=== PATIENT | male | born 1960 | race Caucasian/White ===

== ENCOUNTER → 2016-07-18 | Outpatient (CLI) | payer BC, OTHER ==
[~2016-07-18] VITALS: Ht 177.8 cm; Wt 127.0 kg
[~2016-07-18] MED LIST: ASPI81TA28 PO; ATOR-26 PO; LISI-729 PO; NTRGSL/4 UT
[2016-07-18 16:33] VITALS: BP 119/78; PULSE 65; Ht 177.8 cm; Wt 127.0 kg
== END | disposition home or self-care (01) ==
LOC: C.NEUR 15:43
PROVIDERS: ATTEND Internal Medicine Pulmonary Disease
DX: G47.33 Obstructive sleep apnea (adult) (pediatric) (principal)

== ENCOUNTER 2017-01-21 18:44 | Observation (INO) | payer OTHER ==
[~2017-01-21] VITALS: Ht 177.8 cm; Wt 124.8 kg
[2017-01-21] MEDS ORDERED: ALUMINUM/MAGNESIUM SUSP 30 ML UDC PO STA (18:53)
[2017-01-21] MEDS ORDERED: ASPIRIN 81 MG CHEW PO STA (18:53)
[2017-01-21] MEDS ORDERED: PANTOprazole SOD 40 MG TAB PO STA (18:53)
[2017-01-21] MEDS ORDERED: SODIUM CHLORIDE 0.9% 500ML 500 ML IV STA (18:53)
[2017-01-21] MEDS ORDERED: NITROGLYCERIN 0.4 MG SL PER TAB CHARGE SL PRN ×2 (19:00→22:15)
--- NOTE | 2017-01-21 19:07 | EMERGENCY ROOM VISIT NOTE ---
History Report prepared by [place]: [facility] Under the Supervision of: Dr. Maurice Hobbs D.O. First contact with patient: 18:48 Chief Complaint: CHEST PAIN Stated Complaint: CHEST PAIN History of Present Illness The patient is a 57 year old male who presents to the Emergency Room with complaints of an episode of chest pain 1 hour ago. The patient was doing some light yard work when he started having a heavy pain across the top of his chest. It did not radiate to his neck, back, or arm. The pain is currently improved, but he feels that it might come back. He has nitro at home which he did not take. He did not have any SOB, nausea, or abdominal pain. He feels like he has to take a deep breath every once in a while. He denies any swelling in his legs. He had lower back pain for the past few days which is normal for him. He has a history of heart problems and has a stent in place. He has a history of hypertension. His last stress test was normal 2 years ago. He denies any other surgeries. He denies any tobacco or alcohol use. He had been on a steroid for heel spurs recently. Source of History: patient, family Onset: 1 hour ago Position: chest Quality: other (heavy) Timing: other (episodic) Associated Symptoms: No neck pain, No SOB, No nausea, No abdominal pain Note: Pt denies leg swelling. Review of Systems See HPI for pertinent positives & negatives. A total of 10 systems reviewed and were otherwise negative. Past Medical & Surgical Medical Problems: (1) Hypertension Surgical Problems: (1) History of heart artery stent Family History No pertinent family history stated. Social History Marital Status: Occupation Status: employed Current/Historical Medications Scheduled Aspirin (Aspirin Ec), 81 MG PO DAILY Atorvastatin (Lipitor), 80 MG PO HS Lisinopril (Prinivil), 5 MG PO DAILY Scheduled PRN Nitroglycerin (Nitrostat), 0.4 MG UT PRN PRN for Chest Pain Allergies Coded Allergies: Penicillins (Unverified Allergy, Intermediate, HIVES, 01/21/17) Physical Exam Vital Signs Date Time Temp Pulse Resp B/P (MAP) Pulse Ox O2 Delivery O2 Flow Rate FiO2 01/21/17 19:26 94 Room Air 01/21/17 19:26 94 Room Air 01/21/17 19:26 53 16 132/60 94 Room Air 01/21/17 19:08 55 01/21/17 18:55 95 Room Air 01/21/17 18:50 36.9 58 19 165/99 95 Room Air Physical Exam GENERAL: Patient is awake, alert, and in no acute distress. Patient is resting comfortably and showing no signs of anxiety EYES: The conjunctivae are clear. The pupils are round and reactive. EARS, NOSE, MOUTH AND THROAT: The nose is without any evidence of any deformity. Mucous membranes are moist tongue is midline NECK: The neck is nontender and supple. RESPIRATORY: Normal respiratory effort is noted there is no evidence of wheezing rhonchi or rales CARDIOVASCULAR: Regular rate and rhythm noted there no murmurs rubs or gallops normal S1 normal S2 GASTROINTESTINAL: The abdomen is soft. Bowel sounds are present in all quadrants. Abdomen is nontender MUSCULOSKELETAL/EXTREMITIES: There is no evidence of gross deformity full range of motion is noted in the hips and shoulders SKIN: There is no obvious evidence of any rash. There are no petechiae, pallor or cyanosis noted. NEUROLOGIC: Patient is awake alert and oriented x3 Medical Decision & Procedures ER Provider Diagnostic Interpretation: X-ray results as stated below per interpretation by me and the radiologist. CHEST ONE VIEW PORTABLE CLINICAL HISTORY: Chest pain. COMPARISON STUDY: No previous studies for comparison. FINDINGS: The lung volumes are normal. No pneumothorax or pleural effusion is identified. There is no consolidation to suggest pneumonia and there is no evidence of pulmonary edema. Cardiac size is at the upper limits of normal. Mediastinal contours are unremarkable. IMPRESSION: No acute cardiopulmonary findings. Electronically signed by: Boogie Franklin M.D. 01/21/2017 7:18 PM Dictated Date/Time: 01/21/2017 7:17 PM Laboratory Results 01/21/17 19:25 Red Blood Count 4.90, Mean Corpuscular Volume 90.8, Mean Corpuscular Hemoglobin 31.2, Mean Corpuscular Hemoglobin Concent 34.4, Mean Platelet Volume 10.1, Neutrophils (%) (Auto) 59.5, Lymphocytes (%) (Auto) 30.3, Monocytes (%) (Auto) 9.0, Eosinophils (%) (Auto) 0.7, Basophils (%) (Auto) 0.2, Neutrophils # (Auto) 6.75, Lymphocytes # (Auto) 3.43, Monocytes # (Auto) 1.02, Eosinophils # (Auto) 0.08, Basophils # (Auto) 0.02 01/21/17 19:25 Test 01/21/17 19:25 White Blood Count 11.33 K/uL (4.8-10.8) Red Blood Count 4.90 M/uL (4.7-6.1) Hemoglobin 15.3 g/dL (14.0-18.0) Hematocrit 44.5 % (42-52) Mean Corpuscular Volume 90.8 fL (80-100) Mean Corpuscular Hemoglobin 31.2 pg (25-34) Mean Corpuscular Hemoglobin Concent 34.4 g/dl (32-36) Platelet Count 224 K/uL (130-400) Mean Platelet Volume 10.1 fL (7.4-10.4) Neutrophils (%) (Auto) 59.5 % Lymphocytes (%) (Auto) 30.3 % Monocytes (%) (Auto) 9.0 % Eosinophils (%) (Auto) 0.7 % Basophils (%) (Auto) 0.2 % Neutrophils # (Auto) 6.75 K/uL (1.4-6.5) Lymphocytes # (Auto) 3.43 K/uL (1.2-3.4) Monocytes # (Auto) 1.02 K/uL (0.11-0.59) Eosinophils # (Auto) 0.08 K/uL (0-0.5) Basophils # (Auto) 0.02 K/uL (0-0.2) RDW Standard Deviation 43.0 fL (36.4-46.3) RDW Coefficient of Variation 13.0 % (11.5-14.5) Immature Granulocyte % (Auto) 0.3 % Immature Granulocyte # (Auto) 0.03 K/uL (0.00-0.02) Prothrombin Time 10.2 SECONDS (9.0-12.0) Prothromb Time International Ratio 1.0 (0.9-1.1) Activated Partial Thromboplast Time 24.9 SECONDS (21.0-31.0) Partial Thromboplastin Ratio 1.0 Anion Gap 6.0 mmol/L (3-11) Est Creatinine Clear Calc Drug Dose 138.3 ml/min Estimated GFR () 116.6 Estimated GFR (Non- 100.6 BUN/Creatinine Ratio 19.6 (10-20) Calcium Level 8.6 mg/dl (8.5-10.1) Total Bilirubin 0.4 mg/dl (0.2-1) Direct Bilirubin 0.1 mg/dl (0-0.2) Aspartate Amino Transf (AST/SGOT) 36 U/L (15-37) Alanine Aminotransferase (ALT/SGPT) 78 U/L (12-78) Alkaline Phosphatase 68 U/L (45-117) Troponin I < 0.015 ng/ml (0-0.045) Total Protein 7.6 gm/dl (6.4-8.2) Albumin 3.7 gm/dl (3.4-5.0) Lipase 115 U/L (73-393) Laboratory results per my review. Medications Administered Medications (Trade) Dose Ordered Sig/Mark Route Start Time Stop Time Status Last Admin Dose Admin Aspirin (Aspirin Chew) 324 mg NOW STAT PO 01/21/17 18:53 01/21/17 18:56 DC 01/21/17 19:19 324 MG Al Hydroxide/Mg Hydroxide (Maalox Susp) 30 ml NOW STAT PO 01/21/17 18:53 01/21/17 18:56 DC 01/21/17 19:18 30 ML Sodium Chloride 500 ml @ 999 mls/hr Q31M STAT IV 01/21/17 18:53 01/21/17 19:23 DC 01/21/17 19:19 999 MLS/HR Pantoprazole Sodium (Protonix Tab) 40 mg NOW STAT PO 01/21/17 18:53 01/21/17 18:56 DC 01/21/17 19:19 40 MG ECG Indication: chest pain Rate (beats per minute): 58 Rhythm: sinus bradycardia Findings: PVC, other (no acute ST segment abnormality) Comparison ECG Date: no prior available ED Course 1850: The patient was evaluated in room A12B. A complete history and physical examination were performed. 185: Protonix Tab 40 mg PO, NSS 500 ml @ 999 mls/hr IV, Maalox Susp 30 ml PO, Aspirin 324 mg PO. 1899: Nitroglycerin 0.4 mg SL. 2014: Upon reevaluation, the patient is resting comfortably. I discussed results and treatment plan with him. He verbalizes agreement and understanding. The patient will be evaluated for further management and care. 2020: I discussed the patient's case with SHANON Biswas hospitalist. The patient will be evaluated for further management. Medical Decision Prior records/ancillary studies reviewed. Triage Nursing notes reviewed. Additional history obtained from family. The patient's history was concerning for chest pain. Differential diagnosis: Etiologies such as cardiac ischemia, aortic dissection, pulmonary embolism, pneumonia, pneumothorax, musculoskeletal, infections, pericarditis, myocarditis , esophageal rupture, gastrointestinal, as well as others were entertained. The patient is a 57-year-old male who presented to the emergency department for an evaluation of chest discomfort. The patient notices anterior chest discomfort which she describes a pressure. The patient is a history of coronary artery disease. He did not take his nitroglycerin at home for this pain. He states the pain began while he was doing yardwork but denies that he was exerting himself overly when it began. I discussed the patient's laboratory and radiographic studies with him. I discussed the limitations of the emergency department workup for chest pain with him. Given the patient's risk factors I discussed his case with the on-call [facility] hospitalist group. They've agreed to evaluate the patient in the emergency department for further management and disposition. Medication Reconcilliation Current Medication List: was personally reviewed by me Blood Pressure Screening Patient's blood pressure: Normal blood pressure Blood pressure disposition: Did not require urgent referral Consults Time Called: 2019 Consulting Physician: SHANON Biswas hospitalist Returned Call: 2020 I discussed the patient's case with him. The patient will be evaluated for further management. Impression Primary Impression: Chest pain Scribe Attestation The scribe's documentation has been prepared under my direction and personally reviewed by me in its entirety. I confirm that the note above accurately reflects all work, treatment, procedures, and medical decision making performed by me. Departure Information Dispostion Being Evaluated By Hospitalist Referrals Merlin Dave M.D. (PCP) Patient Instructions [facility]
--- NOTE | 2017-01-21 19:20 | DIAGNOSTIC IMAGING REPORT ---
CHEST ONE VIEW PORTABLE CLINICAL HISTORY: Chest pain. COMPARISON STUDY: No previous studies for comparison. FINDINGS: The lung volumes are normal. No pneumothorax or pleural effusion is identified. There is no consolidation to suggest pneumonia and there is no evidence of pulmonary edema. Cardiac size is at the upper limits of normal. Mediastinal contours are unremarkable. IMPRESSION: No acute cardiopulmonary findings. Electronically signed by: Boogie Franklin M.D. 01/21/2017 7:18 PM Dictated Date/Time: 01/21/2017 7:17 PM
[2017-01-21 19:30] LABS: BASO % 0.2 %; BASO ABS # 0.02 K/uL (0-0.2); COMPLETE YES; EOS % 0.7 %; HEMATOCRIT 44.5 % (42-52); IG% 0.3 %; LYMPH % 30.3 %; LYMPH ABS # 3.43 K/uL (1.2-3.4); MEAN CELL VOLUME 90.8 fL (80-100); MEAN CORPUSCULAR HEMOGLOBIN 31.2 pg (25-34); MEAN CORPUSCULAR HGB CONC 34.4 g/dl (32-36); MEAN PLATELET VOLUME 10.1 fL (7.4-10.4); NEUT % 59.5 %; PLATELET COUNT 224 K/uL (130-400); WHITE BLOOD COUNT 11.33 K/uL (4.8-10.8)
[2017-01-21 19:47] LABS: ALT/SGPT 78 U/L (12-78); AST/SGOT 36 U/L (15-37); BLOOD UREA NITROGEN 16 mg/dl (7-18); BUN/CREATININE RATIO 19.6 (10-20); CALCIUM 8.6 mg/dl (8.5-10.1); CARBON DIOXIDE 25 mmol/L (21-32); CHLORIDE 108 mmol/L (98-107); GLUCOSE 122 mg/dl (70-99); SODIUM 139 mmol/L (136-145)
[2017-01-21 19:56] LABS: ALKALINE PHOSPHATASE 68 U/L (45-117)
[2017-01-21 20:05] LABS: PROTHROMBIN TIME (PATIENT) 10.2 SECONDS (9.0-12.0)
[2017-01-21] MEDS ORDERED: NTRGSL/4 UT (20:07)
[2017-01-21] MEDS ORDERED: LISI-729 PO (20:07)
[2017-01-21] MEDS ORDERED: ASPI81TA28 PO (20:07)
[2017-01-21] MEDS ORDERED: ATOR-26 PO (20:07)
--- NOTE | 2017-01-21 21:12 | History and Physical ---
History & Physical Date & Time of Service: Jan 21, 2017 at 20:41 Chief Complaint: Chest Pain Primary Care Physician: Merlin Dave M.D. History of Present Illness Source: patient 57M with a PMHx of HTN, CAD p/w an episode of chest tightness that lasted 6-8 minutes while performing yard work earlier today. He described the pain as a sensation as a band across his chest. He has never had a pain like that before. The pain resolved on its own with rest. He did not have a recurrence of this pain after the initial event. The pain was not radiating to his left arm or his jaw. Pt has a history of a coronary artery stent placed in [place] by Dr. Aguilar, he describes the pain as distinctly different than the chest pain he was having leading up to his stent placement which he described as more of an crushing type pain. Pt denies any SOB during the episode. Has been on steroids for a foot spur, today was the last day, took 10mg today. Pt reports a normal cardiac stress test around two years ago. ROS: No vomiting, no diarrhea, no abdominal pain, no cough, no extremity swelling. FMHx: A close family member (?father) had a heart attack recently and heart issues are on his mind. SHx: Non smoker, drinks rarely. If everything is negative pt is hoping for an early discharge on Monday. Past Medical/Surgical History Medical Problems: (1) Hypertension Status: Chronic Surgical Problems: (1) History of heart artery stent Status: Resolved Family History Noncontributory Social History Smoking Status: Former Smoker Smokeless Tobacco Use: No Alcohol Use: none Drug Use: none Marital Status: Housing status: lives with family Occupational Status: employed Immunizations History of Influenza Vaccine: Yes History of Tetanus Vaccine?: Yes History of Pneumococcal: No History of Hepatitis B Vaccine: Unknown Multi-Drug Resistant Organisms History of MDRO: No Allergies Coded Allergies: Penicillins (Unverified Allergy, Intermediate, HIVES, 01/21/17) Home Medications Scheduled Aspirin (Aspirin Ec), 81 MG PO DAILY Atorvastatin (Lipitor), 80 MG PO HS Lisinopril (Prinivil), 5 MG PO DAILY Scheduled PRN Nitroglycerin (Nitrostat), 0.4 MG UT PRN PRN for Chest Pain Review of Systems Constitutional: No fever, No chills Respiratory: No cough, No sputum, No wheezing, No shortness of breath, No dyspnea on exertion Abdomen: No pain, No nausea, No vomiting Musculoskeletal: No joint pain Neurologic: No memory loss Physical Exam Vital Signs Date Time Temp Pulse Resp B/P (MAP) Pulse Ox O2 Delivery O2 Flow Rate FiO2 01/21/17 19:26 94 Room Air 01/21/17 19:26 94 Room Air 01/21/17 19:26 53 16 132/60 94 Room Air 01/21/17 19:08 55 01/21/17 18:55 95 Room Air 01/21/17 18:50 36.9 58 19 165/99 95 Room Air General Appearance: WD/WN, + obese Head: normocephalic, atraumatic Neck: supple Respiratory/Chest: chest non-tender, lungs clear, normal breath sounds, no respiratory distress, no accessory muscle use Cardiovascular: regular rate, rhythm, no edema, no gallop, no JVD, no murmur, normal peripheral pulses Abdomen/GI: normal bowel sounds, non tender, soft, no organomegaly, no pulsatile mass Back: no CVA tenderness, no muscle spasm, normal range of motion Extremities/Musculoskelatal: normal inspection, no calf tenderness, no pedal edema Neurologic/Psych: no motor/sensory deficits, alert, normal mood/affect, oriented x 3 Skin: no rash Diagnostics Laboratory Results Results Past 24 Hours Test 01/21/17 19:25 Range/Units White Blood Count 11.33 4.8-10.8 K/uL Red Blood Count 4.90 4.7-6.1 M/uL Hemoglobin 15.3 14.0-18.0 g/dL Hematocrit 44.5 42-52 % Mean Corpuscular Volume 90.8 80-100 fL Mean Corpuscular Hemoglobin 31.2 25-34 pg Mean Corpuscular Hemoglobin Concent 34.4 32-36 g/dl Platelet Count 224 130-400 K/uL Mean Platelet Volume 10.1 7.4-10.4 fL Neutrophils (%) (Auto) 59.5 % Lymphocytes (%) (Auto) 30.3 % Monocytes (%) (Auto) 9.0 % Eosinophils (%) (Auto) 0.7 % Basophils (%) (Auto) 0.2 % Neutrophils # (Auto) 6.75 1.4-6.5 K/uL Lymphocytes # (Auto) 3.43 1.2-3.4 K/uL Monocytes # (Auto) 1.02 0.11-0.59 K/uL Eosinophils # (Auto) 0.08 0-0.5 K/uL Basophils # (Auto) 0.02 0-0.2 K/uL RDW Standard Deviation 43.0 36.4-46.3 fL RDW Coefficient of Variation 13.0 11.5-14.5 % Immature Granulocyte % (Auto) 0.3 % Immature Granulocyte # (Auto) 0.03 0.00-0.02 K/uL Prothrombin Time 10.2 9.0-12.0 SECONDS Prothromb Time International Ratio 1.0 0.9-1.1 Activated Partial Thromboplast Time 24.9 21.0-31.0 SECONDS Partial Thromboplastin Ratio 1.0 Sodium Level 139 136-145 mmol/L Potassium Level 4.0 3.5-5.1 mmol/L Chloride Level 108 98-107 mmol/L Carbon Dioxide Level 25 21-32 mmol/L Anion Gap 6.0 3-11 mmol/L Blood Urea Nitrogen 16 7-18 mg/dl Creatinine 0.80 0.60-1.40 mg/dl Est Creatinine Clear Calc Drug Dose 138.3 ml/min Estimated GFR () 116.6 Estimated GFR (Non- 100.6 BUN/Creatinine Ratio 19.6 10-20 Random Glucose 122 70-99 mg/dl Calcium Level 8.6 8.5-10.1 mg/dl Total Bilirubin 0.4 0.2-1 mg/dl Direct Bilirubin 0.1 0-0.2 mg/dl Aspartate Amino Transf (AST/SGOT) 36 15-37 U/L Alanine Aminotransferase (ALT/SGPT) 78 12-78 U/L Alkaline Phosphatase 68 45-117 U/L Troponin I < 0.015 0-0.045 ng/ml Total Protein 7.6 6.4-8.2 gm/dl Albumin 3.7 3.4-5.0 gm/dl Lipase 115 73-393 U/L Diagnostic Radiology CHEST ONE VIEW PORTABLE CLINICAL HISTORY: Chest pain. COMPARISON STUDY: No previous studies for comparison. FINDINGS: The lung volumes are normal. No pneumothorax or pleural effusion is identified. There is no consolidation to suggest pneumonia and there is no evidence of pulmonary edema. Cardiac size is at the upper limits of normal. Mediastinal contours are unremarkable. IMPRESSION: No acute cardiopulmonary findings. EKG Rate (beats per minute): 58 Rhythm: sinus bradycardia Findings: PVC, other (no acute ST segment abnormality) Impression Assessment and Plan 57M with a PMHx of HTN, CAD w stent placement p/w an episode of chest tightness with yardwork that lasted <30 minutes. Trops neg x 1. Cardiology consulted. Echo ordered. If negative pt would like to be discharged early on Monday. CV - Chest Pain of Unknown Origin * Asymptomatic at present. * EKG showed normal sinus rhythm. * Trops neg x 1 * Continue home ASA 81mg daily. * Will trend Trops. * EKG in AM. * Echo ordered. * Cariology consulted (Dr. Aguilar) CAD w stent * ASA as above. * continue home lipitor 80mg daily. * continue home lisinopril 5mg daily Resp - X-ray results showed no acute process. Renal - Creatinine is WNL. GI/ - Heart Healthy Diet. Endo * Blood Sugars well controlled. * Electrolytes: Na+ 139 K+ 4.0 check Mg and Phos in the AM Heme * Hgb 15.3, Platelets 224 * DVT Proph: Hep SQ BID, ID - Afebrile, WBC count 11.3. Continue to monitor with CBCs. Neuro: AAOx3, Pain control with Tylenol 650mg PRN. MSK - If pt's clinical condition deteriorates consider PT and OT. Social - No concerns. Full Code Attending Addendum: I have physically seen and examined this patient, have supervised the medical residents activities, and agree with the H&P as noted above with the following exceptions: NONE The patient is awake, well-developed and adequately nourished, alert and oriented 3, normocephalic and atraumatic, lying in bed and in no acute distress. HEENT--PERRL, EOMI, mucous membranes and oropharynx dry. Neck--supple, no JVD or bruits, thyroid normal, trachea midline, no adenopathy. Heart--normal S1 and S2, no extra beats, no murmurs, rubs or gallops. Lungs--clear bilaterally with good air movement, no respiratory distress, no accessory muscle use. Abdomen--normal bowel sounds and soft, nontender and nondistended, obese. Extremities--no cyanosis, clubbing or edema. There are good distal pulses b/l. Dermatologic--normal skin turgor, normal color, warm and dry, no abnormal lymph nodes, no rash. Neurologic--cranial nerves II through XII grossly intact, motor and sensory examination normal. Rheumatologic--normal range of motion, nontender, muscles and joints. Psychiatric--normal affect. Assessment and Plan: 1. CAD/hypertension/history coronary artery stent--The patient will be admitted to telemetry for serial cardiac enzymes, cardiac rhythm monitoring and a 2-D echocardiogram with Dopplers. Continue aspirin 81 mg by mouth daily. Continue Lipitor 80 mg by mouth daily. Continue lisinopril 5 mg by mouth daily. Consult his developer prover upholstering Dr. Aguilar. Level of Care Telemetry Advanced Directives Existing Advance Directive: No Existing Living Will: No Existing Power of Mentally Retarded Teacher: No Resuscitation Status FULL RESUSCITATION VTE Prophylaxis Given or contraindicated: SCD's Social Service Consult None Apply Resident Involvement: Resident Care Provided Care Provided: Adult Hospital Medicine
[2017-01-21 21:36] VITALS: Ht 177.8 cm; Wt 124.8 kg
[2017-01-21] MEDS ORDERED: ALUMINUM/MAGNESIUM/SIMETH (MAALOX MAX) 30 ML UDC PO PRN (22:15)
[2017-01-21] MEDS ORDERED: ZOLPIDEM TARTRATE 5 MG TAB PO PRN ×2 (22:15)
[2017-01-21] MEDS ORDERED: MAGNESIUM HYDROXIDE SUSP 30 ML UDC PO PRN (22:15)
[2017-01-21] MEDS ORDERED: ONDANSETRON INJ 2 MG/ML 2 ML VIAL IV PRN (22:15)
[2017-01-21] MEDS ORDERED: MoRPHine SULFATE 2 MG/ML CARP IV PRN (22:15)
[2017-01-21] MEDS ORDERED: ACETAMINOPHEN 325 MG TAB PO PRN (22:15)
[2017-01-21] MEDS ORDERED: POLYETHYLENE (MIRALAX) 17 GM PACK PO PRN (22:15)
[2017-01-21 23:40] VITALS: BP 149/82; PULSE 73; TEMP 36.8; O2SAT 93
[2017-01-21 23:51] VITALS: BP 126/75; PULSE 49; TEMP 36.6; O2SAT 95
[2017-01-22] VITALS: O2SAT 95
[2017-01-22 04:13] VITALS: BP 126/77; PULSE 46; TEMP 36.4; O2SAT 98
[2017-01-22 04:22] LABS: MEAN CELL VOLUME 92.2 fL (80-100); MEAN CORPUSCULAR HEMOGLOBIN 31.4 pg (25-34); MEAN PLATELET VOLUME 9.8 fL (7.4-10.4); PLATELET COUNT 219 K/uL (130-400); RED BLOOD COUNT 4.88 M/uL (4.7-6.1); WHITE BLOOD COUNT 10.73 K/uL (4.8-10.8)
[2017-01-22 04:41] LABS: BLOOD UREA NITROGEN 14 mg/dl (7-18); BUN/CREATININE RATIO 16.2 (10-20); CALCIUM 8.4 mg/dl (8.5-10.1); CARBON DIOXIDE 32 mmol/L (21-32); CHLORIDE 106 mmol/L (98-107); CREATININE 0.84 mg/dl (0.60-1.40); GLUCOSE 118 mg/dl (70-99); MAGNESIUM 2.2 mg/dl (1.8-2.4); SODIUM 140 mmol/L (136-145)
[2017-01-22 04:46] LABS: CKMB/CK RATIO 1.1 (0-3.0); PHOSPHORUS 3.9 mg/dl (2.5-4.9)
[2017-01-22 07:39] VITALS: BP 119/81; PULSE 50; TEMP 36.5; O2SAT 95
[2017-01-22] MEDS ORDERED: HEPARIN SOD 5000 UNIT/0.5 ML CARP SQ SCH (09:00)
[2017-01-22] MEDS ORDERED: ASPIRIN 81 MG ECTAB PO SCH (09:00)
[2017-01-22] MEDS ORDERED: LISINOPRIL 5 MG TAB PO SCH (09:00)
--- NOTE | 2017-01-22 10:02 | Hospitalist Progress Note ---
Hospitalist Progress Note Date of Service Jan 22, 2017. Subjective Pt evaluation today including: conversation w/ patient, conversation w/ family , physical exam, chart review, lab review, review of inpatient medication list Pain: Chest pain resolved PO Intake: Tolerated Voiding: no voiding problems, no incontinence This is a 57 yo male that presented yesterday with a band like chest pain across the upper chest yesterday while on a garden tractor. He reports that the chest pain resolved with rest. He has a history of stent placement for CAD at [facility] in 2010 and states that this pain is different. Pain radiated across his upper chest. He had no radiation to the jaw, back, shoulders, or arms. He had no nausea. He was not aware of any palpitations. He has developed more profound bradycardia and is not on any beta blockers. He denies lightheadedness or dizziness. He has no other acute complaints All Other Systems: Reviewed and Negative (other than listed above in the subjective narrative) Objective Vital Signs Date Time Temp Pulse Resp B/P (MAP) Pulse Ox O2 Delivery O2 Flow Rate FiO2 01/22/17 08:00 Room Air 01/22/17 07:39 36.5 50 16 119/81 (94) 95 01/22/17 04:13 36.4 46 18 126/77 (93) 98 Nasal Cannula 2.0 01/22/17 04:00 Room Air Nasal Cannula 01/22/17 00:00 Room Air Nasal Cannula 01/22/17 00:00 95 Room Air 01/21/17 23:51 36.6 49 18 126/75 (92) 95 Room Air 01/21/17 23:40 36.8 73 18 149/82 (104) 93 Room Air 01/21/17 23:10 57 19 122/73 97 Room Air 01/21/17 22:27 51 18 139/84 94 Room Air 01/21/17 21:36 Room Air 01/21/17 21:07 48 20 139/84 95 Room Air 01/21/17 19:26 94 Room Air 01/21/17 19:26 94 Room Air 01/21/17 19:26 53 16 132/60 94 Room Air 01/21/17 19:08 55 01/21/17 18:55 95 Room Air 01/21/17 18:50 36.9 58 19 165/99 95 Room Air Physical Exam Notes: Vital Signs - as noted below Laboratory Data - as noted below Physical Exam: General - NAD Eyes - No icterus, gaze conjugate ENT - Mucosa moist, no lesions or candidiasis Neck - Supple, No JVD Lungs - No bronchospasm, rales, or rhonchi. Heart - Regular, bradycardic in the 50s. Was rajwinder in the 40s overnight. No appreciation of MGRs Abdomen - Soft, NT, ND, BS present Extremities - No edema, pedal pulses intact Neuro - A&OX3 Laboratory Results Last 24 Hours Test 01/21/17 19:25 01/22/17 04:09 White Blood Count 11.33 K/uL 10.73 K/uL Red Blood Count 4.90 M/uL 4.88 M/uL Hemoglobin 15.3 g/dL 15.3 g/dL Hematocrit 44.5 % 45.0 % Mean Corpuscular Volume 90.8 fL 92.2 fL Mean Corpuscular Hemoglobin 31.2 pg 31.4 pg Mean Corpuscular Hemoglobin Concent 34.4 g/dl 34.0 g/dl Platelet Count 224 K/uL 219 K/uL Mean Platelet Volume 10.1 fL 9.8 fL Neutrophils (%) (Auto) 59.5 % Lymphocytes (%) (Auto) 30.3 % Monocytes (%) (Auto) 9.0 % Eosinophils (%) (Auto) 0.7 % Basophils (%) (Auto) 0.2 % Neutrophils # (Auto) 6.75 K/uL Lymphocytes # (Auto) 3.43 K/uL Monocytes # (Auto) 1.02 K/uL Eosinophils # (Auto) 0.08 K/uL Basophils # (Auto) 0.02 K/uL RDW Standard Deviation 43.0 fL 44.7 fL RDW Coefficient of Variation 13.0 % 13.2 % Immature Granulocyte % (Auto) 0.3 % Immature Granulocyte # (Auto) 0.03 K/uL Prothrombin Time 10.2 SECONDS Prothromb Time International Ratio 1.0 Activated Partial Thromboplast Time 24.9 SECONDS Partial Thromboplastin Ratio 1.0 Sodium Level 139 mmol/L 140 mmol/L Potassium Level 4.0 mmol/L 4.0 mmol/L Chloride Level 108 mmol/L 106 mmol/L Carbon Dioxide Level 25 mmol/L 32 mmol/L Anion Gap 6.0 mmol/L 2.0 mmol/L Blood Urea Nitrogen 16 mg/dl 14 mg/dl Creatinine 0.80 mg/dl 0.84 mg/dl Est Creatinine Clear Calc Drug Dose 138.3 ml/min 131.7 ml/min Estimated GFR () 116.6 114.2 Estimated GFR (Non- 100.6 98.6 BUN/Creatinine Ratio 19.6 16.2 Random Glucose 122 mg/dl 118 mg/dl Calcium Level 8.6 mg/dl 8.4 mg/dl Total Bilirubin 0.4 mg/dl Direct Bilirubin 0.1 mg/dl Aspartate Amino Transf (AST/SGOT) 36 U/L Alanine Aminotransferase (ALT/SGPT) 78 U/L Alkaline Phosphatase 68 U/L Troponin I < 0.015 ng/ml < 0.015 ng/ml Total Protein 7.6 gm/dl Albumin 3.7 gm/dl Lipase 115 U/L Phosphorus Level 3.9 mg/dl Magnesium Level 2.2 mg/dl Total Creatine Kinase 96 U/L Creatine Kinase MB 1.1 ng/ml Creatine Kinase MB Ratio 1.1 Assessment and Plan CHEST PAIN No radiation, fever, nausea, back pain Resolved with rest at home No chest pain since initial episode Troponins are negative No hypoxia EKG with sinus rajwinder - occasional PACs, PVCs on telemetry Echocardiogram as patient has a history of CAD While patient states that he was doing yard work at time of pain, he was riding a lawn tractor and had minimal exertion Cardiology consulted - no indication for inpatient consult. Discussed with Dr. Aguilar who will see him as an outpatient Continue ASA, Lisinopril, Lipitor SLEEP APNEA Has followed with Dr. Shah CPAP at 8cm H2O No supplemental O2 CAD Stent placed in LAD in 2010 at [facility] with a drug eluding stent - continue ASA Continue ASA and statin Outpatient follow up with Dr. Aguilar HTN Lisinopril at home Currently hemodynamically stable DVT PROPHYLAXIS Patient ambulatory Anticipate discharge later today if cleared by cardiology Thank you for including us in the care of this patient. Please refer to Dr. Mcgill's addendum for further recommendations
[2017-01-22] MEDS ORDERED: PERFLUTREN LIPID MICROSPHERE (DEFINITY) IV ONE (10:24)
--- NOTE | 2017-01-22 11:48 | Discharge Instructions ---
Discharge Instructions Date of Service Jan 22, 2017. Admission Reason for Admission: Chest Pain Discharge Discharge Diagnosis / Problem: Chest pain Discharge Goals Goal(s): Diagnostic testing Activity Recommendations Activity Limitations: resume your previous activity Lifting Limitations: none Exercise/Sports Limitations: rest today May Resume Sexual Activity: when tolerated Shower/Bathe: no limitations Driving or Machine Use: no limitations None . Instructions / Follow-Up Instructions / Follow-Up No alcohol consumption pending cardiology outpatient visit Keep well hydrated Return to ED immediately if you develop recurrent chest pain Current Hospital Diet Patient's current hospital diet: AHA Diet (Heart Healthy) Discharge Diet Recommended Diet: AHA Diet (Heart Healthy) Fluid Restriction: None Procedures Procedures Performed: None Pending Studies Studies pending at discharge: no Medical Emergencies . Who to Call and When: Medical Emergencies: If at any time you feel your situation is an emergency, please call 911 immediately. . Non-Emergent Contact Non-Emergency issues call your: Primary Care Provider, Commercial Credit Analyst . . "Provider Documentation" section prepared by Tony Quiroz. . VTE Core Measure Inpt VTE Proph given/why not?: Mariah SCOTT Drug Monitoring Program Search Results: no issues identified
[2017-01-22 11:53] VITALS: BP 128/79; PULSE 56; TEMP 36.6; O2SAT 95
--- NOTE | 2017-01-22 11:56 | ECHOCARDIOGRAM REPORT ---
*NOTICE TO RECEIVING CONSTITUTION PARTY AGENCY This information is strictly Confidential and protected under [place] law. [place] law prohibits you from making any further disclosure of this information unless further disclosure is expressly permitted by the written consent of the person to whom it pertains or is authorized by law. A general authorization for the release of medical or other information is not sufficient for this purpose. Hospital accepts no responsibility if the information is made available to any other person, INCLUDING THE PATIENT. Interpretation Summary * Name: RUFUS GOMEZ Study Date: 01/22/2017 09:58 AM BP: 119/81 mmHg * Patient Location: [facility] HR: 52 * : 1960 (M/d/yyyy) Gender: Male Height: 70 in * Age: 57 yrs Ethnicity: [place] Weight: 275 lb * Ordering Physician: KENNEDY MORALES PA-C * Performed By: Sanjuanita Trejo RCS * * Reason For Study: CHEST PAIN * BSA: 2.4 m2 * -- Conclusions -- * The left ventricle is mildly dilated. * There is mild concentric left ventricular hypertrophy. * Left ventricular systolic function is normal. * Normal diastolic function Procedure Details * A complete two-dimensional transthoracic echocardiogram was performed (2D, M-mode, Doppler and color flow Doppler). * A contrast injection of Definity was performed to improve assessment of LV function. * Contrast was injected into an intravenous site in the left arm. * One vial of Definity ultrasound contrast was diluted in normal saline to a total volume of 10 ml. A total of '2' ml of solution was administered during imaging. * Lot # [id number] of Definity utilized for procedure. * Expiration date FEB 10. * The attending nurse who injected the contrast agent was MADAY KIMBROUGH, CLIF. Left Ventricle * The left ventricle is mildly dilated. * There is mild concentric left ventricular hypertrophy. * Left ventricular systolic function is normal. * Normal diastolic function * The left ventricular wall motion is normal. Right Ventricle * The right ventricle is normal in size and function. Atria * The left atrial size is normal. * Right atrial size is normal. Mitral Valve * The mitral valve anatomy is normal. * Significant mitral regurgitation is absent. Tricuspid Valve * The tricuspid valve is not well visualized, but is grossly normal. * There is trace tricuspid regurgitation. Aortic Valve * The aortic valve is normal in structure and function. * No hemodynamically significant valvular aortic stenosis. * There is no significant aortic regurgitation. Great Vessels * The aortic root is normal size. Pericardium/Pleural * There is no pericardial effusion. MMode 2D Measurements and Calculations IVSd 1.5 cm IVSs 1.6 cm LVIDd 6.0 cm LVIDs 4.4 cm LVPWd 1.2 cm LVPWs 1.5 cm IVS/LVPW 1.3 FS 25.6 % EDV(Teich) 177.9 ml ESV(Teich) 89.7 ml EF(Teich) 49.6 % EDV(cubed) 212.7 ml ESV(cubed) 87.7 ml EF(cubed) 58.8 % % IVS thick 6.7 % % LVPW thick 25.4 % LV mass(C)d 356.0 grams LV mass(C)dI 148.9 grams/m\S\2 LV mass(C)s 276.7 grams LV mass(C)sI 115.8 grams/m\S\2 SV(Teich) 88.2 ml SI(Teich) 36.9 ml/m\S\2 SV(cubed) 125.0 ml SI(cubed) 52.3 ml/m\S\2 Ao root diam 3.4 cm Ao root area 8.9 cm\S\2 ACS 1.9 cm LA dimension 3.9 cm LA/Ao 1.1 LVOT diam 2.2 cm LVOT area 3.8 cm\S\2 Doppler Measurements and Calculations MV E max davey 55.0 cm/sec MV A max davey 38.3 cm/sec MV E/A 1.4 MV P1/2t max davey 64.7 cm/sec MV P1/2t 140.7 msec MVA(P1/2t) 1.6 cm\S\2 MV dec slope 134.7 cm/sec\S\2 MV dec time 0.23 sec Ao V2 max 146.0 cm/sec Ao max PG 8.5 mmHg Ao max PG (full) 4.5 mmHg YESICA(V,A) 2.6 cm\S\2 YESICA(V,D) 2.6 cm\S\2 LV V1 max PG 4.0 mmHg LV V1 max 100.0 cm/sec
--- NOTE | 2017-01-22 12:09 | Discharge Summary ---
Discharge Summary Date of Service Jan 22, 2017. 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 Aguilar Discharge Exam History & Physical Date & Time of Service: Jan 21, 2017 at 20:41 Chief Complaint: Chest Pain Primary Care Physician: Merlin Dave M.D. History of Present Illness 57M with a PMHx of HTN, CAD p/w an episode of chest tightness that lasted 6-8 minutes while performing yard work earlier today. He described the pain as a sensation as a band across his chest. He has never had a pain like that before. The pain resolved on its own with rest. He did not have a recurrence of this pain after the initial event. The pain was not radiating to his left arm or his jaw. Pt has a history of a coronary artery stent placed in [place] by Dr. Aguilar, he describes the pain as distinctly different than the chest pain he was having leading up to his stent placement which he described as more of an crushing type pain. Pt denies any SOB during the episode. Has been on steroids for a foot spur, today was the last day, took 10mg today. Pt reports a normal cardiac stress test around two years ago. ROS: No vomiting, no diarrhea, no abdominal pain, no cough, no extremity swelling. FMHx: A close family member (?father) had a heart attack recently and heart issues are on his mind. SHx: Non smoker, drinks rarely. If everything is negative pt is hoping for an early discharge on Monday. Past Medical/Surgical History Medical Problems: (1) Hypertension Status: Chronic Surgical Problems: (1) History of heart artery stent Status: Resolved Social History Smoking Status: Former Smoker Marital Status: Occupational Status: employed Allergies Coded Allergies: Penicillins (Unverified Allergy, Intermediate, HIVES, 01/21/17) Home Medications Scheduled Aspirin (Aspirin Ec), 81 MG PO DAILY Atorvastatin (Lipitor), 80 MG PO HS Lisinopril (Prinivil), 5 MG PO DAILY Scheduled PRN Nitroglycerin (Nitrostat), 0.4 MG UT PRN PRN for Chest Pain Review of Systems Constitutional: No fever, No chills Respiratory: No cough, No sputum, No wheezing, No shortness of breath, No dyspnea on exertion Abdomen: No pain, No nausea, No vomiting Musculoskeletal: No joint pain Neurologic: No memory loss Physical Exam Vital Signs Date Time Temp Pulse Resp B/P (MAP) Pulse Ox O2 Delivery O2 Flow Rate FiO2 01/21/17 19:26 94 Room Air 01/21/17 19:26 94 Room Air 01/21/17 19:26 53 16 132/60 94 Room Air 01/21/17 19:08 55 01/21/17 18:55 95 Room Air 01/21/17 18:50 36.9 58 19 165/99 95 Room Air General Appearance: WD/WN, + obese Head: normocephalic, atraumatic Neck: supple Respiratory/Chest: chest non-tender, lungs clear, normal breath sounds, no respiratory distress, no accessory muscle use Cardiovascular: regular rate, rhythm, no edema, no gallop, no JVD, no murmur, normal peripheral pulses Abdomen/GI: normal bowel sounds, non tender, soft, no organomegaly, no pulsatile mass Back: no CVA tenderness, no muscle spasm, normal range of motion Extremities/Musculoskelatal: normal inspection, no calf tenderness, no pedal edema Neurologic/Psych: no motor/sensory deficits, alert, normal mood/affect, oriented x 3 Skin: no rash Diagnostics Laboratory Results Results Past 24 Hours Test 01/21/17 19:25 Range/Units White Blood Count 11.33 4.8-10.8 K/uL Red Blood Count 4.90 4.7-6.1 M/uL Hemoglobin 15.3 14.0-18.0 g/dL Hematocrit 44.5 42-52 % Mean Corpuscular Volume 90.8 80-100 fL Mean Corpuscular Hemoglobin 31.2 25-34 pg Mean Corpuscular Hemoglobin Concent 34.4 32-36 g/dl Platelet Count 224 130-400 K/uL Mean Platelet Volume 10.1 7.4-10.4 fL Neutrophils (%) (Auto) 59.5 % Lymphocytes (%) (Auto) 30.3 % Monocytes (%) (Auto) 9.0 % Eosinophils (%) (Auto) 0.7 % Basophils (%) (Auto) 0.2 % Neutrophils # (Auto) 6.75 1.4-6.5 K/uL Lymphocytes # (Auto) 3.43 1.2-3.4 K/uL Monocytes # (Auto) 1.02 0.11-0.59 K/uL Eosinophils # (Auto) 0.08 0-0.5 K/uL Basophils # (Auto) 0.02 0-0.2 K/uL RDW Standard Deviation 43.0 36.4-46.3 fL RDW Coefficient of Variation 13.0 11.5-14.5 % Immature Granulocyte % (Auto) 0.3 % Immature Granulocyte # (Auto) 0.03 0.00-0.02 K/uL Prothrombin Time 10.2 9.0-12.0 SECONDS Prothromb Time International Ratio 1.0 0.9-1.1 Activated Partial Thromboplast Time 24.9 21.0-31.0 SECONDS Partial Thromboplastin Ratio 1.0 Sodium Level 139 136-145 mmol/L Potassium Level 4.0 3.5-5.1 mmol/L Chloride Level 108 98-107 mmol/L Carbon Dioxide Level 25 21-32 mmol/L Anion Gap 6.0 3-11 mmol/L Blood Urea Nitrogen 16 7-18 mg/dl Creatinine 0.80 0.60-1.40 mg/dl Est Creatinine Clear Calc Drug Dose 138.3 ml/min Estimated GFR () 116.6 Estimated GFR (Non- 100.6 BUN/Creatinine Ratio 19.6 10-20 Random Glucose 122 70-99 mg/dl Calcium Level 8.6 8.5-10.1 mg/dl Total Bilirubin 0.4 0.2-1 mg/dl Direct Bilirubin 0.1 0-0.2 mg/dl Aspartate Amino Transf (AST/SGOT) 36 15-37 U/L Alanine Aminotransferase (ALT/SGPT) 78 12-78 U/L Alkaline Phosphatase 68 45-117 U/L Troponin I < 0.015 0-0.045 ng/ml Total Protein 7.6 6.4-8.2 gm/dl Albumin 3.7 3.4-5.0 gm/dl Lipase 115 73-393 U/L Diagnostic Radiology CHEST ONE VIEW PORTABLE CLINICAL HISTORY: Chest pain. COMPARISON STUDY: No previous studies for comparison. FINDINGS: The lung volumes are normal. No pneumothorax or pleural effusion is identified. There is no consolidation to suggest pneumonia and there is no evidence of pulmonary edema. Cardiac size is at the upper limits of normal. Mediastinal contours are unremarkable. IMPRESSION: No acute cardiopulmonary findings. EKG Rate (beats per minute): 58 Rhythm: sinus bradycardia Findings: PVC, other (no acute ST segment abnormality) Impression Assessment and Plan 57M with a PMHx of HTN, CAD w stent placement p/w an episode of chest tightness with yardwork that lasted <30 minutes. Trops neg x 1. Cardiology consulted. Echo ordered. If negative pt would like to be discharged early on Monday. CV - Chest Pain of Unknown Origin * Asymptomatic at present. * EKG showed normal sinus rhythm. * Trops neg x 1 * Continue home ASA 81mg daily. * Will trend Trops. * EKG in AM. * Echo ordered. * Cariology consulted (Dr. Aguilar) CAD w stent * ASA as above. * continue home lipitor 80mg daily. * continue home lisinopril 5mg daily Resp - X-ray results showed no acute process. Renal - Creatinine is WNL. GI/ - Heart Healthy Diet. Endo * Blood Sugars well controlled. * Electrolytes: Na+ 139 K+ 4.0 check Mg and Phos in the AM Heme * Hgb 15.3, Platelets 224 * DVT Proph: Hep SQ BID, ID - Afebrile, WBC count 11.3. Continue to monitor with CBCs. Neuro: AAOx3, Pain control with Tylenol 650mg PRN. MSK - If pt's clinical condition deteriorates consider PT and OT. Social - No concerns. Full Code Level of Care Telemetry Resident Involvement: Resident Care Provided Care Provided: Adult [facility] <Electronically signed by Julio C Gan MD> Signed: 01/22/17 0112 Review of Systems: Constitutional: No fever, No chills, No sweats Respiratory: No cough, No sputum, No shortness of breath Cardiovascular: No chest pain, No orthopnea, No edema Abdomen: No pain, No nausea, No vomiting, No diarrhea Musculoskeletal: No joint pain Genitourinary - Male: No hematuria, No dysuria Endocrine: No fatigue Integumentary: No rash Physical Exam: General Appearance: WD/WN, no apparent distress Eyes: normal inspection, PERRL Neck: supple, no adenopathy, no carotid bruits Respiratory/Chest: chest non-tender, lungs clear, normal breath sounds, no respiratory distress Cardiovascular: no edema, no gallop, no JVD, no murmur, normal peripheral pulses Abdomen / GI: normal bowel sounds, non tender, soft Extremities: normal inspection, no pedal edema Neurologic/Psychiatric: a operator II-XII nml as tested, alert, oriented x 3 Skin: normal color, warm/dry Lymphatic: no adenopathy (Tony Quiroz PA-C) Hospital Course Patient admitted as a chest pain rule out on observation status. He was admitted to the telemetry unit and overnight had no arrhythmias. He had no chest pain since admission. Cardiac enzymes were negative. An echocardiogram was ordered as patient developed bradycardia overnight. Echo results revealed no wall motion abnormalities or significant valvular disease. Patient was discharged home and has agreed to follow up with Dr. Aguilar within the next 1-2 weeks. All questions were asked and answered to the satisfaction of the patient and his . Plan was discussed with Dr. Mcgill who agreed to the discharge. CHEST PAIN No radiation, fever, nausea, back pain Resolved with rest at home No chest pain since initial episode at home Troponins are negative No hypoxia EKG with sinus rajwinder - occasional PACs, PVCs on telemetry Echocardiogram as patient has a history of CAD - to be reviewed by Dr. Camara While patient states that he was doing yard work at time of pain, he was riding a lawn tractor and had minimal exertion Cardiology consulted - no indication for inpatient consult. Discussed with Dr. Aguilar who will see him as an outpatient. Inpatient consult cancelled Continue ASA, Lisinopril, Lipitor SLEEP APNEA Has followed with Dr. Shah CPAP at 8cm H2O No supplemental O2 Continue CPAP as directed CAD Stent placed in LAD in 2010 at [place] with a drug eluding stent - continue ASA Cardiac enzymes are negative Continue ASA and statin Outpatient follow up with Dr. Zoda in 1-2 weeks HTN Continue Lisinopril at home dose Currently hemodynamically stable DVT PROPHYLAXIS Patient ambulatory Anticipate discharge later today if cleared by cardiology TEDs Total Time Spent: Greater than 30 minutes This includes examination of the patient, discharge planning, medication reconciliation, and communication with other providers. (Tony Quiroz PA-C) I agree with PA assessment and plan and have seen and examined pt myself Resting comfortably in bed No further chest pain VSS Labs reviewed Trops x 3 sets neg EKG no ischemic changes ECHO reviewed no changes Discharge home (Thomas Mcgill, D.O.) Discharge Instructions Please refer to the electronic Patient Visit Report (Discharge Instructions) for additional information. (Tony Quiroz PA-C)
[2017-01-22 12:11] VITALS: BP 128/79; PULSE 56; TEMP 36.6; O2SAT 95
[2017-01-22 12:15] LABS: CKMB/CK RATIO 1.7 (0-3.0)
[2017-01-22] MEDS ORDERED: ATORVASTATIN 40 MG TAB PO SCH (21:00)
== END 2017-01-22 12:20 | disposition home or self-care (01) ==
LOC: C.EDB 18:47 → C.MED 22:12 → ENRESERV 22:48
PROVIDERS: ADMIT Hospitalist; ATTEND Hospitalist
DX: R07.9 Chest pain, unspecified (principal); R00.1 Bradycardia, unspecified; I10 Essential (primary) hypertension; Z95.818 Presence of other cardiac implants and grafts; Z79.82 Long term (current) use of aspirin; I25.10 Atherosclerotic heart disease of native coronary artery without angina pectoris; Z79.52 Long term (current) use of systemic steroids; Z87.891 Personal history of nicotine dependence; G47.30 Sleep apnea, unspecified

== ENCOUNTER → 2017-05-23 | Outpatient (CLI) | payer OTHER ==
[2017-05-23 13:46] LABS: ALT/SGPT 53 U/L (12-78); BLOOD UREA NITROGEN 15 mg/dl (7-18); BUN/CREATININE RATIO 16.6 (10-20); CALCIUM 8.8 mg/dl (8.5-10.1); CARBON DIOXIDE 29 mmol/L (21-32); CHLORIDE 104 mmol/L (98-107); CHOLESTEROL 140 mg/dl (0-200); CREATININE 0.89 mg/dl (0.60-1.40); GLUCOSE 117 mg/dl (70-99); POTASSIUM 4.2 mmol/L (3.5-5.1); SODIUM 137 mmol/L (136-145); TRIGLYCERIDES 146 mg/dl (0-150); VERY LOW DENSITY LIPOPROT CALC 29 mg/dl
[2017-05-23 13:47] LABS: ESTIMATED AVERAGE GLUCOSE 134 mg/dl; HA1C FLAG Normal (Normal)
[2017-05-23 13:49] LABS: CHOLESTEROL/HDL RATIO 3.8; HDL CHOLESTEROL 37 mg/dl
== END | disposition home or self-care (01) ==
LOC: C.LABMFLN 06:58
PROVIDERS: ATTEND Family Medicine
DX: E78.00 Pure hypercholesterolemia, unspecified (principal); R73.01 Impaired fasting glucose; N45.1 Epididymitis